=== PATIENT | female | born 1950 | race Caucasian/White ===

== ENCOUNTER 2017-06-27 05:48 | Day surgery (SDC) | payer OTHER ==
[~2017-06-27] VITALS: Ht 149.9 cm; Wt 57.6 kg
[2017-06-27 06:38] VITALS: Ht 149.9 cm; Wt 57.6 kg
[2017-06-27] MEDS ORDERED: AMIODIPINE (06:49)
[2017-06-27] MEDS ORDERED: PRED1TAB2 PO (06:49)
[2017-06-27] MEDS ORDERED: AMLO2.5T78 PO (06:49)
[2017-06-27] MEDS ORDERED: CARV6.2579 PO (06:49)
[2017-06-27] MEDS ORDERED: OMEP20CA16 PO (06:49)
[2017-06-27] MEDS ORDERED: CLOP300T15 PO (06:49)
[2017-06-27] MEDS ORDERED: AZAT50TA31 PO (06:49)
[2017-06-27 07:16] VITALS: BP 176/74; PULSE 57; RESP 12
[2017-06-27 07:31] VITALS: BP 137/63; PULSE 53; RESP 23
[2017-06-27] MEDS ORDERED: FENTAnyl 50 MCG/ML VIAL ONE (07:35)
[2017-06-27] MEDS ORDERED: MIDAZOLAM 1 MG/ML 2 ML INJ ONE (07:35)
--- NOTE | 2017-06-27 07:37 | OPPN ---
Date/Time of Note Date/Time of Note DATE: 06/27/17 TIME: 07:35 Operative Report Preoperative Diagnosis Abdominal pain Chronic heartburn Postoperative Diagnosis Hiatal hernia Gastroesophageal reflux disease Gastritis with erosions Operation/Procedure Performed Esophagogastroduodenoscopy and biopsy Surgeon see signature line surgical supply assistant None Anesthesia: moderate sedation Estimated blood loss: none Transfusion Required none Specimen Gastric mucosal biopsy Grafts/Implants none Complications none ASHOK YAÑEZ MD Jun 27, 2017 07:37
[2017-06-27 07:56] VITALS: BP 144/67; PULSE 51; RESP 14
--- NOTE | 2017-06-27 08:13 | GILP ---
DATE OF PROCEDURE: 06/27/2017 NAME OF THE PROCEDURE: Esophagogastroduodenoscopy and biopsy. SURGEON: Charlene Aponte MD PREOPERATIVE DIAGNOSES: 1. Abdominal pain. 2. Chronic heartburn. POSTOPERATIVE DIAGNOSES: 1. Hiatal hernia. 2. Gastroesophageal reflux disease. 3. Gastritis with erosions. 4. Gastric mucosal biopsies were taken for Helicobacter pylori test. INDICATIONS FOR PROCEDURE: The patient is a 66-year-old female patient who has been referred to [facility] for further evaluation of upper abdominal pain and chronic heartburn, not responding to therapy. The patient was scheduled for endoscopic examination for further evaluation. The procedure and possible complications were well explained to the patient. The patient understood and consented to the procedure. DESCRIPTION OF PROCEDURE: Under influence of fentanyl and Versed, the gastroscope was carefully introduced into the esophagus. Under direct vision, it was advanced into the stomach, into the pylorus, into the duodenal bulb, and descending duodenum. FINDINGS: Esophagus, the patient had hiatal hernia and gastroesophageal reflux disease. Stomach, she had gastritis with erosions. Gastric mucosal biopsies were taken for Helicobacter pylori test. Duodenum was normal. She tolerated the procedure very well. There was no complication from the procedure. At the end of procedure, she was awake with stable vital signs and she was discharged home in the care of her family. IMPRESSION: 1. Hiatal hernia. 2. Gastroesophageal reflux disease. 3. Gastritis with erosions. 4. Gastric mucosal biopsies were taken for Helicobacter pylori test. PLAN: 1. Continue omeprazole. 2. Add Zantac 300 mg p.o. at bedtime. 3. Await Helicobacter pylori test report. Dictated By: MD ED Harrell/carmencita/travis /Document#: [id number]
--- NOTE | 2017-06-28 10:28 | CONS ---
DATE OF ADMISSION: DATE OF CONSULTATION: 06/07/2017 Preoperative Gastroenterology Consultation I thank you very much for this kind referral. Ms. Lexie Webb is a 66-year-old female patient who has been referred to me for further evaluation of upper abdominal pain and chronic heartburn not responding to therapy with omeprazole. She is not taking any nonsteroidal anti-inflammatory agents. Her appetite has been good, and there is no history of weight loss. No history of gallstones or liver disease. The patient had colonoscopy for screening 2 years ago, and no colon neoplasm was identified. She is hypertensive, not a diabetic. She has coronary artery disease. She is on Plavix. No lung disease or kidney disease. She has lupus. SOCIAL HISTORY: Nonsmoker. No alcohol abuse. FAMILY HISTORY: The patient has a family history of pancreatic cancer. ALLERGIES: SULFA. ASPIRIN. TYLENOL. DICLOFENAC. MEDICATION: 1. Amlodipine. 2. Carvedilol. 3. Azathioprine. 4. Prednisone. 5. Omeprazole. 6. Plavix. PHYSICAL EXAMINATION: She is 5 feet 2 inches tall, weighs 181 pounds. CARDIAC: Normal heart sounds. LUNGS: Clear. ABDOMEN: Soft. No masses. Normal bowel sounds. NEUROLOGIC: Normal exam. IMPRESSION: 1. Upper abdominal pain and chronic heartburn not responding to therapy with omeprazole. 2. Patient had negative screening colonoscopy 2 years ago. 3. Hypertension. 4. Coronary artery disease. The patient is on Plavix. 5. Lupus. 6. Allergic to sulfa, aspirin, Tylenol and diclofenac. PLAN: Endoscopy examination for further evaluation. The procedure and possible complications were well explained to the patient. She understands and consents to the procedure. I thank you once again with warmest personal regards. Patient Name: LEXIE HE Dictated By: MD ED Harrell/carmencita/rema /Document#: [id number]
== END 2017-06-27 09:18 | disposition home or self-care (01) ==
LOC: GIL 05:48
PROVIDERS: ATTEND Internal Medicine Gastroenterology
DX: K44.9 Diaphragmatic hernia without obstruction or gangrene (principal); K21.9 Gastro-esophageal reflux disease without esophagitis; K29.60 Other gastritis without bleeding; I10 Essential (primary) hypertension; I25.10 Atherosclerotic heart disease of native coronary artery without angina pectoris; M32.9 Systemic lupus erythematosus, unspecified; Z79.02 Long term (current) use of antithrombotics/antiplatelets; Z88.6 Allergy status to analgesic agent; Z88.2 Allergy status to sulfonamides
CPT/HCPCS: 43239; 87081; J2250; J3010; Z7610